=== PATIENT | male | born 1955 | race African-American/Black ===

== ENCOUNTER 2017-12-26 20:49 | Inpatient (IN) | payer MEDICAID, OTHER ==
[~2017-12-26] VITALS: Ht 172.7 cm; Wt 90.3 kg
[2017-12-26 20:58] VITALS: BP 128/76
--- NOTE | 2017-12-26 21:05 | NUR ---
PT AMBULATED TO BED 1
--- NOTE | 2017-12-26 21:05 | NUR ---
PATIENT PRESENTS TO ED WITH CHEST PAIN X2 DAYS. PT DENIES N/V/D; SKIN IS PINK/WARM/DRY; AAOX4 WITH EVEN AND STEADY GAIT; LUNGS CLEAR BL; HR EVEN AND REGULAR; PT DENIES ANY FEVER AND COUGH AT THIS TIME; PATIENT STATES PAIN OF 8/10 AT THIS TIME; VSS; PATIENT POSITIONED FOR COMFORT; HOB ELEVATED; BEDRAILS UP X2; BED DOWN. ER MD MADE AWARE OF PT STATUS.
[2017-12-26] MEDS ORDERED: ASPIRIN 325 MG TAB PO ONE (21:30)
[2017-12-26] MEDS ORDERED: NITROGLYCERIN 2% 1 GM PKT TP ONE (21:30)
[2017-12-26] MEDS ORDERED: MORPHINE SULFATE 4 MG/ML SYR IVP ONE ×2 (21:30→23:15)
[2017-12-26 22:16] LABS: BASOPHILS % (AUTO) 0.6 % (0.0-2.0); EOSINOPHILS # (AUTO) 0.2 K/uL (0-0.4); HEMATOCRIT 40.1 % (36-52); LYMPHOCYTES # (AUTO) 1.4 K/uL (2.0-11.5); LYMPHOCYTES % (AUTO) 16.7 % (20.5-51.1); MEAN CORPUSCULAR HEMOGLOBIN 29 pg (27-31); MEAN CORPUSCULAR HGB CONC 32 g/dL (33-37); MEAN CORPUSCULAR VOLUME 88.2 fL (80-94); MONOCYTES # (AUTO) 0.7 K/uL (0.8-1.0); NEUTROPHILS # (AUTO) 5.8 K/uL (1.8-7.7); NEUTROPHILS % (AUTO) 71.7 % (42.2-75.2); PLATELET COUNT (AUTO) 166 K/uL (140-450); RED BLOOD CELL COUNT(AUTO) 4.55 MIL/uL (4.20-6.10); WHITE BLOOD COUNT (AUTO) 8.2 K/uL (4.8-10.8)
[2017-12-26 22:26] LABS: ANION GAP 14.3 (8-16); CARBON DIOXIDE 23.6 mmol/L (21-32); CREATININE 1.2 mg/dL (0.7-1.3); POTASSIUM 3.9 mmol/L (3.5-5.1)
[2017-12-26 22:33] LABS: ALBUMIN 3.3 g/dL (3.4-5.0); CHOL/HDL RATIO 3.9 (1-4.5); TOTAL BILIRUBIN 0.4 mg/dL (0.0-1.0)
[2017-12-26 22:39] LABS: CREATINE KINASE MB 0.9 ng/mL (0-3.6)
[2017-12-26] MEDS ORDERED: TRAV5SOL OP (23:17)
[2017-12-26] MEDS ORDERED: DORZ10SO3 OP (23:17)
[2017-12-26] MEDS ORDERED: ALPOS OP (23:17)
[2017-12-26] MEDS ORDERED: ACETAMINOPHEN 325 MG TAB PO PRN (23:20)
[2017-12-26] MEDS ORDERED: ONDANSETRON 4 MG/2 ML VIAL IVP PRN (23:20)
[2017-12-26 23:40] LABS: APPEARANCE,URINE CLEAR (CLEAR); BILIRUBIN,URINE NEGATIVE (NEGATIVE); BLOOD, URINE NEGATIVE (NEGATIVE); COLOR,URINE YELLOW (YELLOW); LEUKOCYTE ESTERASE ,URINE NEGATIVE (NEGATIVE); NITRITE, URINE NEGATIVE (NEGATIVE); PH,URINE 5.5 (5.0-9.0); UGLUCOSE NEGATIVE (NEGATIVE)
[2017-12-26 23:45] LABS: PHOSPHORUS 3.6 mg/dL (2.5-4.9); THYROID STIMULATING HORMONE 2.08 uIU/mL (0.34-3.74)
[2017-12-26 23:48] LABS: BARBITURATE, URINE NEG. ng/ml (NEG <=200); BENZODIAZEPINE, URINE NEG. ng/mL (NEG <=200); CANNABINOID, URINE NEG. ng/mL (NEG <=50); COCAINE, URINE NEG. ng/mL (NEG <=300); OPIATE, URINE POS. ng/mL (NEG <=2000); PHENCYCLIDINE SCREEN,URINE NEG. ng/mL (NEG <=25)
--- NOTE | 2017-12-26 23:52 | NUR ---
Pt transferred to Tele 120B via BED.
[2017-12-27 00:05] VITALS: BP 120/79
--- NOTE | 2017-12-27 00:14 | NUR ---
RECEIVED PT REPORT FROM ER NURSE AT BEDSIDE. PT AWAKE AO X4. PT IS ON AUTO CLAIM REPRESENTATIVE SR. PT IS AMBULATORY. HEPLOCK RIGHT FOREARM PATENT 18G. VITALS SIGNS STABLE . PT ORIENTED TO THE FLOOR. CALL LIGHT WITHIN REACH.
--- NOTE | 2017-12-27 00:15 | NUR ---
RECEIVED PT REPORT AT BEDSIDE. PT TRANSFER FROM ER. PT IS AWAKE AO X4. PT CAME IN FOR CHEST PAIN AND SOB. TOOK VITALS SIGNS T: 989 Addendum: 12/27/17 at 0019 by Neelam Mondragon RN VITALS 98.2 TEMP, HR 62, BP 120/79. RR 20 O2 SAT 98%. ON TELE SR 75. MRSA NARES TAKEN. NO S/S OF DISTRESS. NO SOB.
--- NOTE | 2017-12-27 00:18 | NUR ---
Pt report given to MARLA AMAYA. Transfer of care at this time.
[2017-12-27] MEDS ORDERED: INSULIN LISPRO SLIDING SCALE 100 UNITS/ML VIAL SUBQ PRN (00:45)
[2017-12-27] MEDS ORDERED: DEXTROSE 50% 50 ML SYR IVP PRN (00:45)
[2017-12-27] MEDS ORDERED: KETOROLAC 15 MG/ML VIAL IVP SCH (01:00)
--- NOTE | 2017-12-27 01:42 | NUR ---
GAVE PT 4 BLANKETS. AND TUNA SANDWICH. PT IS IN STABLE CONDITION, NO SOB OR CHEST PAIN AT THIS TIME. NO S/S OF DISTRESS AT THIS TIME. PT DENIES ANY PAIN AT THIS TIME. WILL CONTINUE TO MONITOR.
[2017-12-27 04:00] VITALS: BP 116/61
--- NOTE | 2017-12-27 05:22 | NUR ---
ASSESSED PT. PT IS ASLEEP NO S/S OF DISTRESS. NO SOB. BED LOWERED CALL LIGHT WITHIN REACH. WILL CONTINUE TO MONITOR.
[2017-12-27] MEDS ORDERED: KETOROLAC 15 MG/ML VIAL ONE (06:11)
[2017-12-27 06:29] LABS: BASOPHILS % (AUTO) 0.6 % (0.0-2.0); EOSINOPHILS # (AUTO) 0.2 K/uL (0-0.4); EOSINOPHILS % (AUTO) 3.4 % (0.0-4.0); HEMATOCRIT 38.7 % (36-52); HEMOGLOBIN 12.4 g/dL (12.0-18.0); LYMPHOCYTES # (AUTO) 1.3 K/uL (2.0-11.5); LYMPHOCYTES % (AUTO) 19.7 % (20.5-51.1); MEAN CORPUSCULAR HEMOGLOBIN 29 pg (27-31); MEAN CORPUSCULAR HGB CONC 32 g/dL (33-37); MEAN CORPUSCULAR VOLUME 88.6 fL (80-94); MONOCYTES # (AUTO) 0.6 K/uL (0.8-1.0); MONOCYTES % (AUTO) 8.5 % (1.7-9.3); NEUTROPHILS # (AUTO) 4.6 K/uL (1.8-7.7); NEUTROPHILS % (AUTO) 67.8 % (42.2-75.2); PLATELET COUNT (AUTO) 143 K/uL (140-450); RED BLOOD CELL COUNT(AUTO) 4.36 MIL/uL (4.20-6.10); WHITE BLOOD COUNT (AUTO) 6.8 K/uL (4.8-10.8)
--- NOTE | 2017-12-27 06:32 | NUR ---
AFTER PAIN MEDICATION. PT IS ASLEEP. NO S/S OF DISTRESS NOTED NO SOB. TELE SR. WILL CONTINUE TO MONITOR.
--- NOTE | 2017-12-27 07:12 | NUR ---
REPORT GIVEN TO DAYSHIFT NURSE RUBINA RN AT BEDSIDE FOR CONTINUITY OF CARE. TELE SR. PT IN STABLE CONDITION.
--- NOTE | 2017-12-27 07:15 | NUR ---
RECEIVED PT REPORT FROM RADIOLOGY EQUIPMENT SERVICER NURSE. PT IS SLEEPING, EASILY AROUSED, OX4. PT IS ON TELE MONITOR. PT IS AMBULATORY. NO S/S OF ACUTE DISTRESS. HEPLOCK RIGHT FOREARM PATENT 18G. VITALS TAKEN. CHEST PAIN HAS BEEN IMPROVED BUT STILL 4-5/10. INITIAL ASSESSMENT DONE. PT REORIENTED TO THE ROOM. CALL LIGHT WITHIN REACH.
[2017-12-27 07:30] LABS: ANION GAP 13.9 (8-16); CARBON DIOXIDE 22.7 mmol/L (21-32); CREATININE 1.1 mg/dL (0.7-1.3); POTASSIUM 3.6 mmol/L (3.5-5.1)
--- NOTE | 2017-12-27 07:30 | NUR ---
RECEIVED PT REPORT FROM NUTRITION MANAGER NURSE. PT SLEEPING, EASILY AROUSED, OX4. PT IS ON TELE. ROB CATH IN PLACE. DRAINING CLEAR YELLOW URINE. IV 20G, SL, FLUSHED, ASYMPTOMATIC. VITALS SIGNS TAKEN. NO S/S OF ACUTE DISTRESS. PT REORIENTED TO THE ROOM. CALL LIGHT WITHIN REACH. POC DISCUSSED. PT VERBALIZED UNDERSTANDING. WILL CONTINUE TO MONITOR. Addendum: 12/27/17 at 0950 by Miguel Zendejas RN PLEASE DISCARD, WRONG PATIENT.
[2017-12-27 07:38] LABS: MAGNESIUM 2.1 mg/dL (1.8-2.4); PHOSPHORUS 2.9 mg/dL (2.5-4.9)
[2017-12-27 08:00] VITALS: BP 105/52
[2017-12-27] MEDS: BLOOD GLUCOSE MONITORING 1 DEV DEV FS SCH ×4 (08:09→21:00)
[2017-12-27] MEDS: LISINOPRIL 5 MG TAB PO SCH (09:00)
[2017-12-27] MEDS: METOPROLOL 25 MG TAB PO SCH ×3 (09:00→21:54)
[2017-12-27] MEDS: ASPIRIN 81 MG TAB.CHEW PO SCH (09:17)
[2017-12-27] MEDS: metFORMIN 500 MG TAB PO SCH ×2 (09:17→17:48)
[2017-12-27] MEDS: PANTOPRAZOLE 40 MG TABEC PO SCH (09:17)
[2017-12-27] MEDS: DOCUSATE SODIUM 100 MG GELCAP PO SCH ×2 (09:17→21:54)
[2017-12-27] MEDS: ATORVASTATIN 20 MG TAB PO SCH (09:17)
[2017-12-27] MEDS: APIXABAN 2.5 MG TAB PO SCH ×2 (09:24→21:00)
--- NOTE | 2017-12-27 10:34 | NUR ---
PATIENT HAS BEEN SCREENED AND CATEGORIZED MODERATE NUTRITION RISK. PATIENT WILL BE SEEN WITHIN 3-5 DAYS OF ADMISSION. 12/29/17 - 12/31/[address]
--- NOTE | 2017-12-27 11:37 | NUR ---
CM NOTE INITIAL REVIEW FAXED TO [facility] [phone] CM PRINCESS Martinez PH# [phone] EXT [phone], PENDING REF# [id number]
[2017-12-27 12:00] VITALS: BP 118/67
--- NOTE | 2017-12-27 12:00 | NUR ---
Furnace Combination Analyst Notes: These screen writer attempted to met with Patient for screen, discuss and gather his information and asses for needed services. Patient was uncooperative and refused to meet with me. Stated been really busy while he was using his cell phone to text or search the internet. I asked Patient if he could give me 5 minutes to gather just basic information; Patient refused again without even attempting to have eye contact with this screen writer. I inform him that i will be back for a second attempt, therefore; he needed to give me a time to comeback. Patient responded " in about 2-3 hours. I agreed and left the room.
--- NOTE | 2017-12-27 12:30 | NUR ---
PT C/O OF CHEST PAIN AND LEFT NECK PAIN, 05/03. HOWEVER, PT IS CALM AND PLAYING HIS PHONE. NOTIFIED MD NESS THAT PT WANTS MORPHINE FOR PAIN
[2017-12-27] MEDS ORDERED: MORPHINE SULFATE 4 MG/ML SYR IVP SCH (12:47)
--- NOTE | 2017-12-27 13:01 | NUR ---
0.5MG MORPHINE GIVEN, IVP. PT TOLERATED WELL.
--- NOTE | 2017-12-27 14:00 | NUR ---
PT IS RESTING IN BED, CALM AND PLAYING HIS PHONE. NO C/O PAIN AT THIS TIME.
--- NOTE | 2017-12-27 15:00 | NUR ---
Director Physical Notes: These fha underwriter attempted for the 2nd time to met with Patient for screen, discuss and gather his information and asses for needed services. Patient continue to be uncooperative and refused again to answer any questions and provide any of his information. Stated not feeling well and not feeling like answering my questions while using his cell phone to text or search the internet avoiding any eye contact again. I Informed him that I was providing him with possible resources needed upon his discharge and Patient still refused them. I machine pecan picker resources and left the room.
[2017-12-27 16:00] VITALS: BP 114/62
--- NOTE | 2017-12-27 16:30 | NUR ---
PT REFUSED ACCU CHECK AT THIS TIME. WILL TRY LATER. NO S/S OF ACUTE DISTRESS.
--- NOTE | 2017-12-27 17:10 | NUR ---
BLOOD SUGAR 151. 2 UNITS INSULIN WILL BE GIVEN.
--- NOTE | 2017-12-27 19:00 | NUR ---
PATIENT IS FOR D/C TODAY, CLEARED BY DR. ELI. PATIENT REFUSED TO GO HOME HE SAID HE APPEALS THE D/C AND HE SAID HE HAS AND HE SPOKE TO DAVID FROM [facility] TODAY. INFORMED CHINA ODELL
--- NOTE | 2017-12-27 19:45 | NUR ---
ENDORSED PT TO CRIB ATTENDANT RN. PT IN STABLE CONDITION.
--- NOTE | 2017-12-27 19:46 | NUR ---
RECEIVED REPORT FROM DAY RN. PT RESTING IN BED. AAOX4. NO S/S OF ACUTE DISTRESS. PT DENIES PAIN. IV SITE PATENT AND INTACT. CALL LIGHT WITHIN REACH. SAFETY MEASURES ENSURED. WILL CONTINUE TO MONITOR.
[2017-12-27 20:00] VITALS: BP 128/70
[2017-12-27] MEDS ORDERED: COMMUNICATION ORDER MC SCH (21:00)
[2017-12-27] MEDS ORDERED: BRIMONIDINE TARTRATE 0.2% OP 5 ML BTL BOTH EYES SCH (21:00)
[2017-12-27] MEDS ORDERED: EYE OP SCH (21:00)
[2017-12-27] MEDS ORDERED: TRAVOPROST 0.004% OP SCH (21:00)
[2017-12-28] VITALS: BP 113/65
--- NOTE | 2017-12-28 00:01 | NUR ---
PT SLEEPING IN BED. NO S/S OF ACUTE DISTRESS. CALL LIGHT WITHIN REACH. SAFETY MEASURES ENSURED. WILL CONTINUE TO MONITOR.
--- NOTE | 2017-12-28 03:20 | NUR ---
PT SLEEPING IN BED. NO S/S OF ACUTE DISTRESS. CALL LIGHT WITHIN REACH. SAFETY MEASURES ENSURED. WILL CONTINUE TO MONITOR.
[2017-12-28 04:00] VITALS: BP 120/73
[2017-12-28] MEDS: BLOOD GLUCOSE MONITORING 1 DEV DEV FS SCH ×3 (05:25→12:18)
--- NOTE | 2017-12-28 07:15 | NUR ---
ENDORSED PLAN OF CARE TO NIGHT RN. PT STABLE.
--- NOTE | 2017-12-28 07:16 | NUR ---
RECEIVED PT REPORT FROM TMH TEACHER NURSE. PT IS SLEEPING, EASILY AROUSED, OX4. PT IS ON TELE MONITOR. PT IS AMBULATORY. NO S/S OF ACUTE DISTRESS. HEPLOCK RIGHT FOREARM PATENT 18G. VITALS TAKEN. DENIES PAIN. INITIAL ASSESSMENT DONE. CALL LIGHT WITHIN REACH.
[2017-12-28 08:00] VITALS: BP 117/54
[2017-12-28] MEDS: LISINOPRIL 5 MG TAB PO SCH (09:00)
[2017-12-28] MEDS: METOPROLOL 25 MG TAB PO SCH (09:00)
--- NOTE | 2017-12-28 09:00 | NUR ---
CM NOTE CONCURRENT REVIEW AND COPY OF INQUIRY REPLY FROM CRAB FISHERMAN BASSEM SHOWING PATIENT HAS EXHAUSTED MEDICARE [facility]OSPITAL DAYS INCLUDING LRSV DAYS FAXED TO [facility] [phone] JOSE R Martinez # [phone] EXT [phone], PENDING REF# [id number].
[2017-12-28] MEDS: metFORMIN 500 MG TAB PO SCH (09:27)
[2017-12-28] MEDS: PANTOPRAZOLE 40 MG TABEC PO SCH (09:27)
[2017-12-28] MEDS: ATORVASTATIN 20 MG TAB PO SCH (09:27)
[2017-12-28] MEDS: ASPIRIN 81 MG TAB.CHEW PO SCH (09:34)
[2017-12-28] MEDS: DOCUSATE SODIUM 100 MG GELCAP PO SCH (09:34)
[2017-12-28] MEDS: APIXABAN 2.5 MG TAB PO SCH (09:46)
--- NOTE | 2017-12-28 10:00 | NUR ---
PT IS WATCHING TV. NO S/S OF ACUTE DISTRESS. KITCHEN STAFF CAME TO TALK TO PT ABOUT LUNCH SELECTIONS.
[2017-12-28 12:00] VITALS: BP 117/69
--- NOTE | 2017-12-28 12:40 | NUR ---
PT DISCHARGED PER MD ORDER. BUS PASS PROVIDED. DISCHARGE INSTRUCTION AND MED TEACHING GIVEN, PT VERBALIZED UNDERSTANDING. MADE PT AWARE OF THE SCHEDULED MD APPOINTMENT. IV DC'D, TIP INTACT, PRESSURE APPLIED. PT LEFT IN STABLE CONDITION AND WITH ALL HIS BELONGINGS. WALKED PT TO THE LOBBY, NO S/S OF ACUTE DISTRESS NOTED.
--- NOTE | 2017-12-28 12:56 | NUR ---
3887 RECEIVED CALL FROM IRLANDA AT [facility] STATING THAT PT HAS REQUESTED AN APPEAL OF HIS DISCHARGE AND SHE WILL SEND A REQUEST FOR RECORDS. PT CASE NUMBER IS [id number]. INFORMED IRLANDA THAT RECORDS WILL BE SENT AND ALSO PT IS CURRENTLY HOSPITALIZED UNDER [facility] MEDICARE DAYS HAVE EXHAUSTED. 1115 RECORDS REQUESTED FAXED TO [facility] AT [phone]. 1135 RECEIVED VM FROM ROBERT AT [facility] CALL BACK [phone] STATED THAT CASE HAS BEEN CLOSED DUE TO MEDICARE EXHAUSTION AND THAT [facility] HAS BEEN NOTIFIED. 1210 MET WITH PT AND ASKED IF HE HAD RECEIVED A CALL FROM [facility] REGARDING THE APPEAL AND HE STATED THAT HE DID AND HE WILL BE LEAVING AFTER LUNCH. PT REQUESTING TRANSPORTATION TO BUS [facility] AND INFORMED HIM A BUS PASS WILL BE PROVIDED.
== END 2017-12-28 12:45 | disposition home or self-care (01) | DRG 203 ==
LOC: MED 20:49 → MTU 23:20
PROVIDERS: ADMIT Family Medicine Sports Medicine; ATTEND Family Medicine Sports Medicine
DX: M94.0 Chondrocostal junction syndrome [Tietze] (principal); E44.0 Moderate protein-calorie malnutrition; F11.90 Opioid use, unspecified, uncomplicated; E11.9 Type 2 diabetes mellitus without complications; E78.5 Hyperlipidemia, unspecified; Z88.9 Allergy status to unspecified drugs, medicaments and biological substances; Z68.30 Body mass index [BMI] 30.0-30.9, adult; Z88.5 Allergy status to narcotic agent; Z91.041 Radiographic dye allergy status; Z79.899 Other long term (current) drug therapy; Z60.2 Problems related to living alone; I25.119 Atherosclerotic heart disease of native coronary artery with unspecified angina pectoris
CPT/HCPCS: 36415; 71045; 80048; 80053; 80305; 81003; 82150; 82550; 82553; 82948; 83036; 83690; 83735; 83880; 84100; 84439; 84443; 84484; 85025; 85379; 85610; 85730; 87081; 93005; 93925; 93970; 96374; 96376; 99291; J1815; J1885; J2270; Q0092

== ENCOUNTER 2018-03-27 16:32 | Emergency (ER) | payer MEDICAID, MEDICARE, OTHER ==
[~2018-03-27] VITALS: Ht 172.7 cm; Wt 87.5 kg
[~2018-03-27 16:32] MED LIST: ALPOS OP; DORZ10SO3 OP; TRAV5SOL OP
--- NOTE | 2018-03-27 16:35 | NUR ---
PT AMBULATED TO ER BED 04
[2018-03-27 16:39] VITALS: BP 117/68
[2018-03-27] MEDS ORDERED: NACL 0.9% 1,000 ML IV ONE (16:40)
--- NOTE | 2018-03-27 16:46 | NUR ---
Patient being evaluated by physician at bedside.
--- NOTE | 2018-03-27 16:46 | NUR ---
62Y/M BIB SELF C/O LEFT ANTERIOR PRESSURE CHEST PAIN WITH SOB 30MIN INTERNET SYSTEMS ADMINISTRATOR WITH MILD SOB. PT IS DIAPHORETIC /HOT TO TOUCH. DENIES N/V/D; AAOX4 WITH EVEN AND STEADY GAIT; PATIENT STATES PAIN OF 10/10 AT THIS TIME; VSS; PATIENT POSITIONED FOR COMFORT; HOB ELEVATED; BEDRAILS UP X1; BED DOWN. ER MD MADE AWARE OF PT STATUS.
--- NOTE | 2018-03-27 16:54 | NUR ---
LAB AT BEDSIDE
[2018-03-27 17:18] LABS: BASOPHILS # (AUTO) 0.1 K/uL (0.00-0.22); BASOPHILS % (AUTO) 0.5 % (0.0-2.0); EOSINOPHILS # (AUTO) 0.1 K/uL (0-0.4); EOSINOPHILS % (AUTO) 0.6 % (0.0-4.0); HEMATOCRIT 36.3 % (36-52); HEMOGLOBIN 11.8 g/dL (12.0-18.0); LYMPHOCYTES # (AUTO) 1.6 K/uL (2.0-11.5); LYMPHOCYTES % (AUTO) 16.8 % (20.5-51.1); MEAN CORPUSCULAR HEMOGLOBIN 27 pg (27-31); MEAN CORPUSCULAR HGB CONC 32 g/dL (33-37); MEAN CORPUSCULAR VOLUME 84.4 fL (80-94); MONOCYTES % (AUTO) 10.4 % (1.7-9.3); NEUTROPHILS # (AUTO) 6.8 K/uL (1.8-7.7); NEUTROPHILS % (AUTO) 71.7 % (42.2-75.2); PLATELET COUNT (AUTO) 166 K/uL (140-450); RED BLOOD CELL COUNT(AUTO) 4.31 MIL/uL (4.20-6.10); RED CELL DISTRIBUTION WIDTH 15.5 % (11.6-13.7); WHITE BLOOD COUNT (AUTO) 9.5 K/uL (4.8-10.8)
[2018-03-27 17:29] LABS: ANION GAP 11.6 (8-16); CARBON DIOXIDE 25.9 mmol/L (21-32); CREATININE 1.4 mg/dL (0.7-1.3); POTASSIUM 3.5 mmol/L (3.5-5.1)
[2018-03-27 17:35] LABS: ALBUMIN 3.6 g/dL (3.4-5.0); TOTAL BILIRUBIN 0.4 mg/dL (0.0-1.0)
[2018-03-27 17:49] LABS: PROTHROMBIN TIME 11.6 secs (10.8-13.4)
[2018-03-27] MEDS ORDERED: LORazepam 2 MG/ML VIAL IVP ONE (18:00)
[2018-03-27 19:05] VITALS: BP 132/72
--- NOTE | 2018-03-27 19:05 | NUR ---
Patient discharged with v/s stable. Written and verbal after care instructions given and explained. Patient verbalized understanding. Ambulatory with steady gait. All questions addressed prior to discharge. Advised to follow up with PMD.
== END 2018-03-27 19:05 | disposition home or self-care (01) ==
LOC: MED 16:32
DX: R07.89 Other chest pain (principal); F41.9 Anxiety disorder, unspecified; E11.9 Type 2 diabetes mellitus without complications; Z91.041 Radiographic dye allergy status; Z88.8 Allergy status to other drugs, medicaments and biological substances; Z86.711 Personal history of pulmonary embolism
CPT/HCPCS: 36415; 71045; 80053; 84484; 85025; 85610; 85730; 93005; 96374; 99285; J2060; Q0092

== ENCOUNTER 2020-05-14 14:29 | Emergency (ER) | payer OTHER, MEDICAID ==
[~2020-05-14] VITALS: Ht 172.7 cm; Wt 93.0 kg
[2020-05-14 14:31] VITALS: BP 127/76
--- NOTE | 2020-05-14 14:37 | NUR ---
Patient ambulated to bed 4. RN evaluating patient at bedside.
--- NOTE | 2020-05-14 14:42 | NUR ---
62 y/o male from home c/o chest pain x 2 hrs. Pt states unprovoked pressure 8/10 at this time. Chest pain radiates to lt side of neck. Denies N/V/D. Skim warm, moist, and intact. Denies SOB. Awake and alert. RR even and unlabored. Positioned for comfort. Placed on radiation monitor medhx: glaucoma, DM, pacemaker
--- NOTE | 2020-05-14 14:47 | NUR ---
Dr. Ellis is evaluating the patient at bedside.
--- NOTE | 2020-05-14 14:47 | NUR ---
Dr Ellis at bedside examining pt
[2020-05-14] MEDS ORDERED: ASPIRIN 81 MG TAB.CHEW PO ONE (14:55)
--- NOTE | 2020-05-14 16:10 | NUR ---
Lab at bedside for blood draw.
[2020-05-14 16:20] LABS: BASOPHILS % (AUTO) 0.4 % (0.0-2.0); EOSINOPHILS # (AUTO) 0.1 K/uL (0-0.4); HEMATOCRIT 36.8 % (36-52); HEMOGLOBIN 11.5 g/dL (12.0-18.0); LYMPHOCYTES # (AUTO) 1.2 K/uL (2.0-11.5); LYMPHOCYTES % (AUTO) 11.7 % (20.5-51.1); MEAN CORPUSCULAR HEMOGLOBIN 25 pg (27-31); MEAN CORPUSCULAR HGB CONC 31 g/dL (33-37); MEAN CORPUSCULAR VOLUME 80.9 fL (80-94); MONOCYTES # (AUTO) 0.6 K/uL (0.8-1.0); MONOCYTES % (AUTO) 6.1 % (1.7-9.3); NEUTROPHILS # (AUTO) 7.9 K/uL (1.8-7.7); NEUTROPHILS % (AUTO) 80.8 % (42.2-75.2); PLATELET COUNT (AUTO) 173 K/uL (140-450); RED BLOOD CELL COUNT(AUTO) 4.56 MIL/uL (4.20-6.10); WHITE BLOOD COUNT (AUTO) 9.8 K/uL (4.8-10.8)
--- NOTE | 2020-05-14 16:34 | NUR ---
Resting in bed positioned for comfort, HOB elevated x 1 side rail raised, bed locked and in lowest position. VSS
[2020-05-14 17:05] LABS: PROTHROMBIN TIME 10.8 secs (10.8-13.4)
--- NOTE | 2020-05-14 17:07 | NUR ---
Dr. Ellis is evaluating the patient at bedside.
[2020-05-14] MEDS ORDERED: ACETAMINOPHEN 325 MG TAB PO ONE (17:10)
--- NOTE | 2020-05-14 17:48 | NUR ---
Pt left hospital AMA without signing paper work.
[2020-05-14 17:49] VITALS: BP 121/71
[2020-05-14 18:14] LABS: ALBUMIN 3.7 g/dL (3.4-5.0); ANION GAP 19.4 (8-16); CARBON DIOXIDE 19.6 mmol/L (21-32); CREATININE 1.6 mg/dL (0.6-1.3); TOTAL BILIRUBIN 0.5 mg/dL (0.0-1.0)
== END 2020-05-14 17:48 | disposition left against medical advice (07) ==
LOC: MED 14:29
DX: R07.9 Chest pain, unspecified (principal); E11.9 Type 2 diabetes mellitus without complications; H40.9 Unspecified glaucoma; I51.9 Heart disease, unspecified; Z88.8 Allergy status to other drugs, medicaments and biological substances; Z79.899 Other long term (current) drug therapy; Z88.5 Allergy status to narcotic agent
CPT/HCPCS: 36415; 71045; 80053; 83880; 84484; 85025; 85610; 85730; 93005; 99285; Q0092

== ENCOUNTER 2021-10-14 14:47 | Emergency (ER) | payer OTHER, MEDICAID ==
[~2021-10-14] VITALS: Ht 172.7 cm; Wt 89.4 kg
[2021-10-14 15:05] VITALS: BP 143/77
[2021-10-14] MEDS ORDERED: NITROGLYCERIN 0.4 MG TAB SL ONE (15:40)
[2021-10-14] MEDS ORDERED: ASPIRIN 325 MG TAB PO ONE (15:40)
[2021-10-14 16:45] VITALS: BP 127/69
[2021-10-14 16:50] LABS: BASOPHILS # (AUTO) 0.1 K/uL (0.00-0.22); BASOPHILS % (AUTO) 0.7 % (0.0-2.0); EOSINOPHILS # (AUTO) 0.2 K/uL (0-0.4); HEMATOCRIT 42.6 % (36-52); HEMOGLOBIN 13.7 g/dL (12.0-18.0); LYMPHOCYTES # (AUTO) 1.4 K/uL (2.0-11.5); LYMPHOCYTES % (AUTO) 16.8 % (20.5-51.1); MEAN CORPUSCULAR HEMOGLOBIN 29 pg (27-31); MEAN CORPUSCULAR HGB CONC 32 g/dL (33-37); MEAN CORPUSCULAR VOLUME 90.9 fL (80-94); MONOCYTES % (AUTO) 11.6 % (1.7-9.3); NEUTROPHILS # (AUTO) 5.6 K/uL (1.8-7.7); NEUTROPHILS % (AUTO) 67.9 % (42.2-75.2); PLATELET COUNT (AUTO) 174 K/uL (140-450); RED BLOOD CELL COUNT(AUTO) 4.68 MIL/uL (4.20-6.10); RED CELL DISTRIBUTION WIDTH 14.9 % (11.6-13.7); WHITE BLOOD COUNT (AUTO) 8.2 K/uL (4.8-10.8)
--- NOTE | 2021-10-14 17:40 | NUR ---
pt refusing lab draw at this time. missed previous attempt, states he no longer wants us to try. skylar made aware.
--- NOTE | 2021-10-14 17:50 | NUR ---
pt is requesting a picc line for lab draws. i made him aware that there is not one indicated at this time and that it would be strongly suggested to have labs drawn through venipuncture as ordered by skylar. pt states he wants an us guided iv or picc line at this time. skylar made aware, md guevara states if pt is refusing lab draws then ama must be signed at this time. pt began to yell in triage room, i stated that i will not be present if he is yelling and using foul langauge. notified of interaction.
[2021-10-14] MEDS ORDERED: HYDROcodone/APAP 5/325 MG 1 TAB TAB PO ONE (18:15)
[2021-10-14] MEDS ORDERED: ACETAMINOPHEN EXTRA STRENGTH 500 MG TAB PO ONE (18:20)
--- NOTE | 2021-10-14 18:43 | NUR ---
CALLED THE PATIENT IN LOBBY AND OUTSIDE TO GIVE MEDICATION. NO RESPONSE AT THIS TIME.
[2021-10-14 18:46] LABS: ANION GAP 14.5 (8-16); CARBON DIOXIDE 26.8 mmol/L (21-32); CREATININE 1.1 mg/dL (0.6-1.3); POTASSIUM 4.3 mmol/L (3.5-5.1); TOTAL BILIRUBIN 0.3 mg/dL (0.0-1.0)
--- NOTE | 2021-10-14 21:23 | NUR ---
PT CALLED AROUND 1900 AND LEFT MESSAGE DUE TO PT NOT BEING FOUND IN LOBBY
== END 2021-10-14 19:00 | disposition left against medical advice (07) ==
LOC: MED 14:47
DX: R07.89 Other chest pain (principal); R06.02 Shortness of breath; M79.10 Myalgia, unspecified site; E11.9 Type 2 diabetes mellitus without complications; Z79.899 Other long term (current) drug therapy; Z88.5 Allergy status to narcotic agent; Z88.8 Allergy status to other drugs, medicaments and biological substances; Z95.0 Presence of cardiac pacemaker; Z98.890 Other specified postprocedural states
CPT/HCPCS: 36415; 71045; 80053; 83690; 84484; 85025; 93005; 99285